=== PATIENT | female | born 1930 | race Caucasian/White ===

== ENCOUNTER 2019-12-27 14:23 | Outpatient (CLI) | payer MEDICARE, BC ==
--- NOTE | 2019-12-27 16:48 | MRI ---
MRI Lower Ext Jt Lt WO Con History: Hip pain Comparison: Radiograph October 15, 2019 Findings: Bones: Erosive changes of the pubic symphysis with widening, maceration of the central nba cular disc, and osteophyte formation. Patulous partially torn superior and inferior pubic ligaments. No acute fracture. No SI joint widening. No avascular necrosis. Small subcortical cysts of the right acetabulum. Small right acetabular osteophyte formation. Muscles: Mild bilateral gluteus minimus atrophy. No intramuscular hemorrhage. Tendons: Mild gluteus medius tendinosis and interstitial tearing. Iliopsoas tendon is intact. Hamstri ng tendons are highly tendinotic with mild undersurface partial tearing. Intrapelvic soft tissues: Intact. No free fluid. No dilated loops of bowel. Left acetabular labrum. Intrasubstance tear throughout the anterior and superior labrum. Cartilage: Near complete chondral loss of the anterior acetabulum with small subcortical cysts. Impression: 1. Intrasubstance tear throughout the left acetabular labrum with small subcortical cysts of the ante rior left acetabulum. 2. 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 This degeneration could be sequelae of prior surgical intervention as there is a midline a bdominal scar along the midline rectus abdominis aponeurosis to the pubic symphysis. 3. No acute fracture or malalignment. 4. A few high-grade chondral fissures with subcortical cysts of the left acetabulum, age appropriate. 5. Mild-moderate tendinosis and interstitial tearing of both hamstring tendons. Transcribed Date/Time: 12/27/2019 4:55 PM
== END 2019-12-27 14:24 | disposition home or self-care (01) ==
LOC: SCSMRI 14:23
PROVIDERS: ATTEND Anesthesiology Pain Medicine
DX: M16.12 Unilateral primary osteoarthritis, left hip (principal); S76.311A Strain of muscle, fascia and tendon of the posterior muscle group at thigh level, right thigh, initial encounter; S73.191A Other sprain of right hip, initial encounter

== ENCOUNTER 2022-01-14 13:10 | Outpatient (CLI) | payer MEDICARE, BC | END 2022-01-14 13:11 | disposition home or self-care (01) | LOC: SCSMRI 13:10 | PROVIDERS: ATTEND Anesthesiology Pain Medicine | DX: M47.22 Other spondylosis with radiculopathy, cervical region (principal); M43.12 Spondylolisthesis, cervical region; Z98.1 Arthrodesis status | CPT/HCPCS: 72052; 72141 ==